=== PATIENT | male | born 1990 | race Caucasian/White ===

== ENCOUNTER 2024-09-14 18:21 | Emergency (ER) | payer BC, SELFPAY ==
--- NOTE | 2024-09-14 18:30 | ED.WOUNDLAC ---
HPI - Wound/Laceration General Chief Complaint: Wound/Laceration Stated Complaint: Cut Right Hand Time Seen by Provider: 09/14/24 18:33 Source: patient, RN notes reviewed and old records reviewed Mode of arrival: ambulatory Limitations: no limitations History of Present Illness HPI narrative: 34-year-old male presents to the [facility] with a laceration to the dorsal aspect right hand. 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 Per patients MyChart last Tdap was May of 2018 Onset (ago): minute(s) (30) Patient tetanus UTD: No () Treatments prior to arrival: bandage Related Data Allergies Allergy/AdvReac Type Severity Reaction Status Date / Time No Known Allergies Allergy Verified 09/14/24 19:15 Review of Systems Review of Systems: All systems reviewed & are unremarkable except as noted in HPI and below Constitutional: Constitutional: Reports no additional constitutional complaints ENT: Reports system reviewed and no additional complaints, except as documented Cardiovascular: Cardiovascular: Reports no additional cardiovascular complaints, Denies chest pain and Denies dyspnea Respiratory: Respiratory: Reports no additional respiratory complaints, Denies chest congestion, Denies cough and Denies dyspnea Musculoskeletal: Musculoskeletal: Reports no additional musculoskeletal complaints Integumentary/Breasts: Skin/Breast: Reports as per HPI and Reports wounds PMFSH Comments At the time of my signature, I reviewed and agree with the nursing past medical, surgical, social, and family history. There is no relevant family history pertinent to the patient complaint. Exam Const: General: cooperative, healthy appearing, comfortable, no acute distress, well developed, alert and well nourished Nutritional Appearance: well nourished Orientation/consciousness: patient oriented x3 Limitations: no limitations HENMT: Head: normal to inspection Eyes: General: appearance normal, both eyes and all related structures Alignment and Position: alignment normal Neck: Neck: normal visual inspection, full ROM, no lymphadenopathy and no meningeal signs Chest: Chest palpation & inspection: normal inspection of the chest Resp: Effort & Inspection: normal respiratory effort and able to speak in complete sentences Auscultation: clear to auscultation bilaterally, no crackles, no rales, no rhonchi and no wheezes Cardio: Rate: regular rate Skin: General skin exam: normal color and no rashes or lesions noted Neuro: General: patient oriented x3, gait normal, moves all extremities and no meningeal signs Cognition (Neuro): normal cognition Speech: normal speech Gait exam (Neuro): Normal gait present Extrem: General: normal to inspection, full ROM, capillary refill normal and normal gait Psych: Appearance: grossly normal and well kempt Mental Status: mental status grossly normal Speech and movement: Normal speech and movement present and Clear speech present Affect: normal affect Attitude: cooperative Course Course Level of Care: Express Care Visit Vital Signs Vital signs: Vital Signs Temperature 97.4 F L 09/14/24 18:31 Pulse Rate 81 09/14/24 18:31 Respiratory Rate 16 09/14/24 18:31 Blood Pressure 117/102 H 09/14/24 18:31 Pulse Oximetry 100 09/14/24 18:31 Temperature 97.4 F L 09/14/24 18:31 Pulse Rate 81 09/14/24 18:31 Respiratory Rate 16 09/14/24 18:31 Blood Pressure 117/102 H 09/14/24 18:31 Pulse Oximetry 100 09/14/24 18:31 Reviewed Procedures Laceration Laceration 1: Date: 09/14/24 Time: 18:50 Site: hand Side (If applicable): right Size (cm): 1.5 Description: linear Depth: simple, single layer Local Anesthetic: lidocaine 1% Amount of anesthesia used (mL): 2.5 Pre-repair: wound explored, irrigated and minor debridement (Six paint chips removed) ====== Skin Level ====== Skin layer closed with: nylon Size (cm): 4-0 Number of sutures: 3 Technique: simple, interrupted ====== Subcutaneous Layer ====== ====== Muscle Layer ====== ====== Tendon Layer ====== MDM - Wound/Laceration MDM Narrative Medical decision making narrative: Patient sitting in exam room. Patient is nontoxic, vitals stable. Patient presents with a laceration to the right hand. Laceration repaired Patient tolerated procedure well Due to contaminant she in of paint chips, working as side will cover with an antibiotic to reduce the chances of infection. Area had been irrigated with 200 mils of saline as well as cleaned with Betadine. Patient appropriate for outpatient treatment with close follow-up Differential Diagnosis Differential diagnosis: Likely laceration, abrasion and avulsion of skin Critical Care Time Critical Care Time Critical Care Time: No Discharge Plan Discharge Clinical Impression: Hand laceration, Vaccine for [id number], combined Patient Disposition: Home Condition: Stable Instructions: Laceration (ED) Additional Instructions: Keep area clean and dry. Wash above the wound and let a cascade over twice a day with warm soapy water. Pat dry. Follow-up with primary care provider or return to the [facility] in 10 days to have the sutures removed Patient Language: [place] Prescriptions: New cephalexin 500 mg capsule 500 mg PO Q12H Qty: 14 0RF Follow-up/Referrals: PHYSICIAN,HAIRSPRING VIBRATOR [Primary Care Provider] - Stand Alone Forms: Work/School Release IP Time of Disposition: 19:12
[2024-09-14 18:31] VITALS: BP 117/102; PULSE 81; RESP 16; TEMP 36.3; O2SAT 100
[2024-09-14] MEDS: LIDOCAINE 1% LOCAL INJ 2 ML AMPUL 4 ML INFILTRATE (18:46)
[2024-09-14] MEDS: TETANUS,DIPHTHERIA,AC PERTUSSIS ADULT (0.5 ML) BOOSTRIX IM (18:49)
== END 2024-09-14 19:20 | disposition home or self-care (01) ==
PROVIDERS: Emergency Provider Nurse Practitioner
DX: S61.411A Laceration without foreign body of right hand, initial encounter (principal); X58.XXXA Exposure to other specified factors, initial encounter; Z23 Encounter for immunization
CPT/HCPCS: 12001; 90471; 90715; 99213; G0463; J2003

== ENCOUNTER 2024-09-25 13:07 | Emergency (ER) | payer BC, SELFPAY ==
[2024-09-25 13:14] VITALS: BP 118/74; PULSE 84; RESP 18; TEMP 36.7; O2SAT 99
--- NOTE | 2024-09-25 13:43 | ED.WOUNDLAC ---
HPI - Wound/Laceration General Chief Complaint: Wound/Laceration Stated Complaint: get stiches removed Time Seen by Provider: 09/25/24 13:30 Source: patient and RN notes reviewed Mode of arrival: ambulatory Limitations: no limitations History of Present Illness HPI narrative: 34-year-old male presents to [facility] for suture removal of his right dorsal hand. Patient states he has sutures placed approximately 10 or 11 days ago here. Patient is still taking his antibiotics as directed. Patient denies any signs of infection, increased redness, swelling, discharge, or fevers. Related Data Home Medications ?Medication ?Instructions ?Recorded ?Confirmed ?Last Taken ?Type No Home Medications 09/25/24 09/25/24 Unknown History Allergies Allergy/AdvReac Type Severity Reaction Status Date / Time No Known Allergies Allergy Verified 09/25/24 13:24 Review of Systems Review of Systems: CONSTITUTIONAL: Denies fever, chills, or sweats. EYES: Denies visual changes, redness, or discharge. ENT: Denies rhinorrhea, congestion, sore throat, or otalgia. CARDIOVASCULAR: Denies chest pain, palpitations, or edema. RESPIRATORY: Denies cough or dyspnea. GASTROINTESTINAL: Denies abdominal pain, nausea, vomiting, or diarrhea. GENITOURINARY: Denies dysuria or hematuria. SKIN: Denies rash or itching. Positive for wound. MUSCULOSKELETAL: Denies back pain, joint pain, or myalgia. NEUROLOGIC: Denies headache, numbness, or weakness. PSYCHIATRIC: Denies anxiety or depression. All other systems reviewed are negative, except as documented in HPI. PMFSH Comments At the time of my signature, I reviewed and agree with the nursing past medical, surgical, social, and family history. There is no relevant family history pertinent to the patient complaint. Exam Narrative: GENERAL: This is a well-nourished, well-developed adult, in no apparent distress. They are non ill-appearing, nontoxic appearing. HEAD: normocephalic, atraumatic. EYES: Sclera clear/white. Conjunctiva normal. Vision is grossly intact. Extraocular movements intact EARS: External ears normal, Hearing grossly intact. NOSE: External nose normal THROAT: Mucous membranes moist, NECK: Normal range of motion CARDIOVASCULAR: Regular rate and rhythm RESPIRATORY: Respiratory rate normal, respiratory effort nonlabored, no respiratory distress SKIN: Right hand: 3 sutures present to laceration measuring approximately 1 cm to the dorsal medial surface of the right hand. No area of erythema or discharge. Mild swelling around the laceration. Neurovascular status intact distal injury. Capillary refill less than 2 seconds. Patient can make a fist, stop sign, and okay sign, thumbs-up sign. Number pronation supination of the wrist. Normal range of motion the right hand. Ulnar and radial nerve distribution intact. NEURO: awake, alert, and oriented to person, place and time. There were no obvious focal neurologic abnormalities. EXTREMITIES: No joint tenderness, effusion, or edema noted. BACK: Nontender without deformity. No CVA tenderness. Course Course Emergency Course: Portions of this record may have been created with voice recognition software Level of Care: Express Care Visit Vital Signs Vital signs: Vital Signs Temperature 98.1 F 09/25/24 13:14 Pulse Rate 84 09/25/24 13:14 Respiratory Rate 18 09/25/24 13:14 Blood Pressure 118/74 09/25/24 13:14 Pulse Oximetry 99 09/25/24 13:14 Oxygen Delivery Room Air 09/25/24 13:14 Temperature 98.1 F 09/25/24 13:14 Pulse Rate 84 09/25/24 13:14 Respiratory Rate 18 09/25/24 13:14 Blood Pressure 118/74 09/25/24 13:14 Pulse Oximetry 99 09/25/24 13:14 Oxygen Delivery Room Air 09/25/24 13:14 Reviewed MDM - Wound/Laceration MDM Narrative Medical decision making narrative: Laceration is healed well. No evidence of infection. The sutures were removed successfully. Patient tolerated suture removal well. 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 Patient was wondering if he fractured some thinness hand due to the swelling that he still has. Advised patient that we do not have x-ray capabilities at this [facility] today and offered to send him to another [facility] to obtain imaging. Patient declined further imaging. No obvious injury, deformity, or tenderness present to right hand. There is mild swelling surrounding the laceration. Patient tetanus was updated last visit. Discussed physical exam findings. Advised supportive measures and signs/symptoms to go to the ER. Pt is appropriate for outpt treatment and f/u. Differential Diagnosis Differential diagnosis: Likely laceration and other (Suture removal, cellulitis) Critical Care Time Critical Care Time Critical Care Time: No Discharge Plan Discharge Clinical Impression: Encounter for removal of sutures Patient Disposition: Home Condition: Stable Instructions: Care For Your Stitches (ED) Additional Instructions: Please finish your antibiotics. You had 3 stitches removed today. Continue look for signs of infection. The wound is healing well. Please keep it covered until it has healed completely. Please wash the wound daily with mild soap and water. Go to the ER if you develop increased redness, swelling, discharge, fevers, or any other concerns. Patient Language: [place] Citizen Prescriptions: No Action No Home Medications Follow-up/Referrals: PHYSICIAN,DISHWASHER [Primary Care Provider] - Time of Disposition: 13:43
== END 2024-09-25 13:48 | disposition home or self-care (01) ==
DX: S61.411D Laceration without foreign body of right hand, subsequent encounter (principal); X58.XXXD Exposure to other specified factors, subsequent encounter
CPT/HCPCS: 99211; G0463